=== PATIENT | female | born 1950 | race Caucasian/White ===

== ENCOUNTER 2024-02-08 09:05 | Observation (INO) ==
[2024-02-08] MEDS ORDERED: HYDROmorphone INJ 0.5 MG/0.5 ML SYR IV PRN ×2 (09:36→10:24)
--- NOTE | 2024-02-08 09:46 | Emergency Department Note ---
Impression & Plan Left shoulder pain, Closed left humeral fracture, Failure of outpatient treatment ED Provider Note NAME: ALISE DUNBAR AGE: 73 SEX: F : 1950 ARRIVES VIA: Walk-In INFORMANT: [Patient] ED PROVIDER(S): [Ted Myers MD] CHIEF COMPLAINT: Shoulder pain HISTORY OF PRESENT ILLNESS: The patient is a 73-year-old female presents with left shoulder pain. The patient states that 6 days ago, she fractured her left humeral neck. She was seen in the ER. She was seen by orthopedics as well as her family doctor's office. No operation is indicated. The fracture is going to heal with conservative measures. Patient is on medications for her Parkinson's and, there are potential interactions with her Rasagiline and narcotics, especially narcotics such as tramadol and Demerol. There is concern for the development of serotonin syndrome. The patient's pain is unbearable in the left shoulder. She was referred by her doctors office off to this ER for pain control. PMHx/PSHx/Social Hx: See Below PHYSICAL EXAM: GENERAL: Patient is in moderate distress from pain, tearful. HEENT: No acute trauma, normocephalic atraumatic, mucous membranes moist, no nasal congestion. NECK: No stridor, no adenopathy, no meningismus, trachea is midline. LUNGS: Clear to auscultation bilaterally, no wheeze, no rhonchi, breath sounds equal. HEART: Without murmurs gallops or rubs, regular rate and rhythm. ABDOMEN: Soft, nontender, no peritonitis. EXTREMITIES: No cyanosis. There is contusion noted to the left arm from the bicep to the forearm. There is a strong distal left radial pulse. The radial ulnar and median nerve are intact on the left. There is pain to move the left shoulder and palpate the left proximal humerus. NEUROLOGIC: Oriented x 3, no acute motor or sensory deficits, no focal weakness. SKIN: No jaundice, no diaphoresis. DIFFERENTIAL DIAGNOSIS: Uncontrolled pain, failed outpatient management, medication interaction, among others. EMERGENCY DEPARTMENT PROCEDURES: MEDICAL DECISION MAKING: There is no leukocytosis or worrisome anemia. There is a normal platelet count. No renal failure. Films of the left shoulder demonstrate the known proximal left humeral fracture. On exam, there was contusion of the left arm. There was no evidence for distal left upper extremity neurovascular compromise. She was quite uncomfortable with any movement or palpation of the proximal humerus. The patient presents with uncontrolled pain. She has failed outpatient pain management. There have been issues with prescribing pain medication for her as she is on a daily medication that may interact with narcotics. Given the circumstances, the patient is in need of a hospital stay for pain control. She can be monitored here to be sure that she tolerates the narcotic pain medication without any concerning interaction (serotonin syndrome). I did speak with the patient, I spoke with case management, the on-call hospitalist was consulted. During the patient's ED stay, she received IV Dilaudid. She tolerated this well without any notable interaction. Prior/Outside records/notes reviewed: Primary care note from 02/03/2024 describing her injury, the concern for narcotic administration, the plan moving forward. Imaging/x-ray results per my interpretation: Films of the left shoulder do not show any joint dislocation. The previously noted proximal humeral fracture was seen. Chronic Medical/Social conditions affecting care: Advanced age. Care/Management discussed with: Case management, the on-call hospitalist. Level of care consideration(s): After review of the information above and other included data: --I believe the patient requires escalation of care to admission DISPOSITION: Admission Past Med/Surg History Problem List (Updated 02/08/24 @ 17:32 by Ted Myers MD) Failure of outpatient treatment (Acute) Closed left humeral fracture (Acute) Left shoulder pain (Acute) Closed fracture of neck of humerus (Acute ~02/02/24) Mildly displaced fracture within the left humeral head/neck Fracture of neck of left humerus (02/02/24) From a fall while walking her dog Uncontrolled pain Mitral valve prolapse Fracture of anatomical neck of humerus (02/02/24) From a fall while walking her dog Osteoarthritis of right knee Balance disorder Parkinson disease Medical History Fall Fracture of neck of humerus (02/02/24) From a fall while walking her dog Osteoporosis Surgical History H/O wrist surgery H/O shoulder surgery Family History Mother Diabetes COPD (chronic obstructive pulmonary disease) Father Diabetes Aneurysm Grandmother (Maternal) Diabetes Denies family history of Ovarian cancer Prostate cancer Myocardial infarction Breast cancer Lung cancer Colorectal cancer Stroke Social History Smoking Status: Never smoker Second Hand Exposure: No; Do You Dip or Chew Tobacco: No; Hx Alcohol Use: Yes Alcohol type: beer, wine and hard liquor Alcohol Intake Frequency Comment: once a week with dinner Hx Substance Use: No Preferred Language: Kyrgyz Communication Ability: Effective Visual Impairment: Limited Hearing Ability: Normal Yolk Spray Drier Required: No Beliefs That Will Affect Care: None marital status: Current Living Situation: Spouse How many Children do You have: 2 Feels Safe at Home: Yes Safety Concerns: Feels Safe At This Time Childhood Exposure to Second-Hand Smoke: No Diet Comment: intermittent fasting Dental Care, Regularly: Yes Physical Activity Frequency: Daily Seatbelt Use: always Sunscreen Use: No Assistive Devices: Denture - Upper, Denture - Lower and Glasses Allergies Allergies Allergy/AdvReac Type Severity Reaction Status Date / Time No Known Allergies Allergy Verified 02/03/24 13:30 Home Meds Home Medications Medication Instructions Recorded Confirmed Pregnenolone 30 mg PO DAILY 08/04/22 02/08/24 ascorbic acid (vitamin C) 1,000 mg 1 g PO DAILY 08/04/22 02/08/24 capsule calcium citrate 315 mg 1 tab PO DAILY 08/04/22 02/08/24 calcium-vitamin D3 6.25 mcg (250 unit) tablet (Citracal + Vitamin D Maximum) coenzyme Q10 200 mg capsule 200 mg PO DAILY 08/04/22 02/08/24 vit C 250 mg-vit E 90 mg-zinc 40 1 tab PO DAILY 08/04/22 02/08/24 mg-copper 1 [id number] capsule (PreserVision AREDS-2) zinc gluconate 50 mg tablet 50 mg PO DAILY 08/04/22 02/08/24 Previous Rx's Medication Instructions Recorded cholecalciferol (vitamin D3) 50 50 mcg PO DAILY #90 caps 08/05/23 mcg (2,000 unit) capsule entacapone 200 mg tablet 200 mg PO QID 90 days #360 tabs 11/04/23 carbidopa 25 mg-levodopa 100 mg 2 tab PO QID 90 days #720 tabs 12/29/23 tablet carbidopa ER 50 mg-levodopa 200 mg 1 tab PO HS #90 tabs 12/29/23 tablet,extended release rasagiline 0.5 mg tablet 1 mg (2 x 0.5 mg) PO DAILY #60 tabs 12/29/23 Results & Data (ED) Vital Signs Vital Signs - 24 hr 02/08/24 09:07 02/08/24 10:12 Temperature 36.5 C Temperature Source Temporal Artery Scan Pulse Rate 63 54 L Respiratory Rate 18 Respiratory Effort / Characteristics Non-Labored Spontaneous Respiratory Depth Normal Blood Pressure 155/70 H Blood Pressure Mean 98 Blood Pressure Position Sitting Pulse Oximetry 100 Oxygen Delivery Method Room Air Sepsis Recent Fever Within 48 Hours No Sepsis New/Unexplained Change in Mental Status No Sepsis Action Taken by Nursing No Action Required Home Medications Current Medication List: was personally reviewed by me Laboratory Data Attestation: I reviewed the patient's lab results. 02/08/24 09:56 02/08/24 09:56 Lab Results 02/08/24 Range/Units 09:56 WBC 3.65 L (4.8-10.8) K/ul RBC 3.87 L (4.20-5.40) M/uL Hgb 11.8 L (12.0-16.0) g/dl Hct 34.9 L (37.0-47.0) % MCV 90.2 (80.0-100.0) fL MCH 30.5 (25.0-34.0) pg MCHC 33.8 (32.0-36.0) g/dL RDW Std Deviation 44.2 (36.4-46.3) fL RDW Coeff of Tony 13.3 (11.5-14.5) % Plt Count 208 (130-400) K/uL MPV 10.7 (9.4-12.4) fL Sodium 136 (136-145) mmol/L Potassium 4.2 (3.5-5.1) mmol/L Chloride 100 (98-107) mmol/L Carbon Dioxide 30 (21-32) mmol/L Anion Gap 6 (3-11) BUN 15 (6-23) mg/dl Creatinine 0.86 (0.6-1.2) mg/dl Est Cr Clr Drug Dosing 49.7 ml/min Est GFR ( Amer) 76.6 ml/min Est GFR (Non-Af Amer) 66.1 ml/min BUN/Creatinine Ratio 17.4 (10-20) Glucose 104 H (70-99(Fasting)) mg/dl Calcium 9.2 (8.6-10.3) mg/dl Administered Medications Carbidopa/Levodopa (Carbidopa/Levodopa 25/100mg Tab) 2 tab PO QID MERCEDES Stop: 03/09/24 12:59 Last Admin: 02/08/24 12:56 Dose: 2 tab Documented By: SARAH Entacapone (Entacapone 200 Mg Tab) 200 mg PO QID MERCEDES Stop: 03/09/24 12:59 Last Admin: 02/08/24 12:56 Dose: 200 mg Documented By: SARAH Rasagiline (Rasagiline Mesylate 0.5 Mg Tab) 0.5 mg PO DAILY MERCEDES Stop: 03/09/24 12:59 Last Admin: 02/08/24 12:56 Dose: 0.5 mg Documented By: SARAH Discontinued Medications Acetaminophen (Acetaminophen 325 Mg Tab) 650 mg PO NOW STA Stop: 02/08/24 10:49 Last Admin: 02/08/24 14:01 Dose: 650 mg Documented By: MARIA A Hydromorphone HCl (Hydromorphone Inj 0.5 Mg/0.5 Ml Syr) 0.5 mg IV NOW STA Stop: 02/08/24 09:37 Last Admin: 02/08/24 10:10 Dose: 0.5 mg Documented By: JOSSELINE Ibuprofen (Ibuprofen 200 Mg Tab) 200 mg PO NOW STA Stop: 02/08/24 10:49 Last Admin: 02/08/24 14:01 Dose: 200 mg Documented By: MARIA A Lidocaine (Lidocaine 5% 1 Patch) 1 patch TD NOW STA Stop: 02/08/24 10:50 Last Admin: 02/08/24 14:01 Dose: 1 patch Documented By: MARIA A Pantoprazole Sodium (Pantoprazole 40 Mg Tab) 40 mg PO NOW STA Stop: 02/08/24 10:50 Last Admin: 02/08/24 14:01 Dose: 40 mg Documented By: MARIA A Imaging Data Radiologist's Impression: Shoulder X-Ray 02/08/24 09:36 XR shoulder LT min 2V routine CLINICAL HISTORY: fracture TECHNIQUE: 3 views of the left shoulder were obtained. Comparison: Comparison is made to shoulder radiograph 02/02/2024 FINDINGS: Comminuted fracture of the left humeral head and neck is again seen. Displacement is stable to increased from prior exam, for example on the scapular view the humeral neck is displaced approximately 15 mm from the lateral fracture fragment. Joint spaces are well-preserved. Soft tissue swelling is seen about the shoulder. IMPRESSION: Redemonstration of humeral fracture with associated soft tissue swelling. The fracture fragments may be minimally more displaced than in the prior exam. ACT 112: Negative or not required by law. Electronically signed by: Keith Jurado M.D. 02/08/2024 10:42 AM Discharge Plan Visit Data Chief Complaint: Shoulder Pain Stated Complaint: L SHOULDER PAIN ED Provider: Ted Myers Discharge Problem: Left shoulder pain, Closed left humeral fracture, Failure of outpatient treatment Patient Disposition: Admitted As Inpatient Condition: Fair Discharge Instructions Interventions: ED Discharge Assessment Last Done: 02/08/24 12:28 Discharge Problem: Left shoulder pain Qualifiers: Chronicity: acute Qualified Code(s): M25.512 - Pain in left shoulder Closed left humeral fracture Qualifiers: Encounter type: subsequent encounter Humerus Location: proximal Fracture morphology: unspecified fracture morphology Fracture healing: with routine healing Qualified Code(s): S42.202D - Unspecified fracture of upper end of left humerus, subsequent encounter for fracture with routine healing
[2024-02-08] MEDS: HYDROmorphone INJ 0.5 MG/0.5 ML SYR IV STA (10:10)
[2024-02-08 10:19] LABS: Hematocrit (blood only) 34.9 % (37.0-47.0); Hemoglobin 11.8 g/dl (12.0-16.0); Mean Corpuscular Hemoglobin 30.5 pg (25.0-34.0); Mean Corpuscular Hgb Conc 33.8 g/dL (32.0-36.0); Mean Corpuscular Volume 90.2 fL (80.0-100.0); Mean Platelet Volume 10.7 fL (9.4-12.4); Platelet Count 208 K/uL (130-400); RDW Coefficient of Variation 13.3 % (11.5-14.5); RDW Standard Deviation 44.2 fL (36.4-46.3); Red Blood Count 3.87 M/uL (4.20-5.40); White Blood Count 3.65 K/ul (4.8-10.8)
--- NOTE | 2024-02-08 10:26 | History & Physical Report ---
Date of Service February 08, 2024 Assessment & Plan (1) Uncontrolled pain: Plan: Ad[facility] Currently stable with pain controlled after receiving 0.5 mg IV Dilaudid in the ED Patient initially presented to the ED today due to uncontrolled pain from her known left humeral head/neck fracture initially sustained after a fall on 02/02/2024. Complex situation as patient is on rasagiline for her Parkinson's disease, combination of narcotics with her MAOI (rasagiline) is now listed as a category X adverse reaction due to the risks of developing serotonin syndrome Because of these risks her outpatient prescription for oxycodone was never filled, pain was intolerable with using as needed Tylenol and Motrin At this time we will admit the patient for ongoing pain control and monitoring for the development of serotonin syndrome for now, patient understands that she would still be at risk of developing serotonin syndrome even if she does not develop it while admitted and taking narcotics with her rasagiline Long discussion was held with the patient including explanation of common symptoms associated with serotonin syndrome including fever, skin flushing, tachycardia, hypertension, and agitation. Patient expressed understanding that she should alert her nurse if she develops the symptoms while admitted and seek emergency medical attention if she develops the symptoms after discharge Patient is motivated to continue using conservative pain regimens with use of lowest dose possible of narcotics for severe pain Will begin the following pain regimen moving forward: > 650 mg p.o. acetaminophen every 6 hours scheduled > 200 mg P0 ibuprofen every 4 hours as needed pain 1-5 > 5 mg p.o. oxycodone IR every 4 hours as needed pain 6+ > Continue lidocaine patch > Continue left upper extremity and sling Will speak with orthopedics to see if they can see the patient during this admission as repeat 2 view x-ray of the left shoulder obtained in the ED shows possible progression of fracture fragments, patient is scheduled to see see orthopedics in follow-up the clinic tomorrow morning but unsure if she would be able to be discharged prior to this appointment If pain is uncontrolled and there is ongoing concern for increased doses of as needed narcotics could consider pain management consult to see if possible nerve block could be performed Heart healthy diet Bilateral MATEUSZ stockings for DVT prophylaxis PT/OT consults AM CBC, BMP (2) Fracture of neck of left humerus: Plan: See uncontrolled pain (3) Parkinson disease: Plan: Continue carbidopa levodopa We do not have patient's home rasagiline on formulary, discussed with patient and her will be bringing her home prescription shortly Miscellaneous med order has been placed as patient normally takes 0.5 mg rasagiline every morning Once patient brings her vaginally and and will give her her missed home dose this afternoon Fall precautions ordered Plan The patient was discussed with Dr. Reynaga at time of the admission History of Present Illness Chief Complaint: Uncontrolled pain Primary Care Provider: Dawn Copeland MD Sharee is a 73-year-old female with past medical history significant for Parkinson's disease and recently diagnosed left humeral head/neck fracture on 02/02/2024 who presented to the [facility] ED on 02/08/2024 at the recommendation of her PCP due to uncontrolled pain in her left upper extremity. Patient has a complex situation as she is on MAO inhibitors (rasagiline) for her Parkinson's disease. She was initially prescribed oxycodone for severe pain when she was seen in the emergency department on 01/25/2024 however, her pharmacy had refused to fill this prescription due to the theoretical risk of narcotics combined with MAO inhibitors being a category ask risk for serotonin syndrome. Patient has reportedly been using Tylenol and Motrin for pain which has been unsuccessful. We are asked to admit the patient for monitoring while starting a pain regimen due to the risk of narcotics and serotonin syndrome combined with rasagiline. Prior to admission the patient was given 3.5 mg IV Dilaudid. Patient was sitting in bed in no acute distress at the time of exam, she had received the 0.5 mg IV Dilaudid approximate 25 minutes before my arrival. States that her pain has been significantly improved after receiving 1 dose of the IV Dilaudid. Confirms she fell and broke her left humeral neck approximately 6 days ago while walking her son's dog. Confirms that she had been trying to use Tylenol and ibuprofen at home approximately every 6 hours (alternating approximately every 3 hours) without relief of her severe pain. She does confirm that she would miss doses of both and had been initially using a lidocaine patch but then stopped using this as well. Confirms that her prescription for oxycodone had not been for outpatient due to concerns for development of serotonin syndrome. Took all of her a.m. medications prior to arrival besides her 0.5 mg rasagiline, her preparing this and as we do not have this on formulary. I explained to her that there is a risk of developing serotonin syndrome when combining rasagiline and narcotics but this does not guarantee that she will develop this. Also explained that we can monitor for now while starting these medications but this does not mean that she may develop serotonin syndrome after discharge. Explained the symptoms associated with serotonin syndrome to monitor during admission on discharge including flushing, fever, tachycardia, hypertension, agitation. Explained to her that if she would develop these during her admission to let her nurse know. She also notes that she should seek emergency medical attention if she were develop these after discharge. When asked, patient denies current numbness/tingling coldness in the left upper extremity. She explains that at times while sleeping with the left elbow flexed and left shoulder internally rotated she will develop mild paresthesias which resolved when straightening her left upper extremity. She explains that she was supposed to be seen by orthopedics on 02/09/2024 for follow-up. Confirm she is a full code and would want her to make medical decisions for her if she cannot make them herself. Please refer to Dr. Reyngaa's attestation for any changes to treatment plan Allergies Allergy/AdvReac Type Severity Reaction Status Date / Time No Known Allergies Allergy Verified 02/03/24 13:30 Home Medications Medication Instructions Recorded Confirmed Type Pregnenolone 30 mg PO DAILY 08/04/22 02/08/24 History ascorbic acid (vitamin C) 1,000 mg 1 g PO DAILY 08/04/22 02/08/24 History capsule calcium citrate 315 mg 1 tab PO DAILY 08/04/22 02/08/24 History calcium-vitamin D3 6.25 mcg (250 unit) tablet (Citracal + Vitamin D Maximum) coenzyme Q10 200 mg capsule 200 mg PO DAILY 08/04/22 02/08/24 History vit C 250 mg-vit E 90 mg-zinc 40 1 tab PO DAILY 08/04/22 02/08/24 History mg-copper 1 [id number] capsule (PreserVision AREDS-2) zinc gluconate 50 mg tablet 50 mg PO DAILY 08/04/22 02/08/24 History cholecalciferol (vitamin D3) 50 50 mcg PO DAILY #90 caps 08/05/23 02/08/24 Rx mcg (2,000 unit) capsule entacapone 200 mg tablet 200 mg PO QID 90 days #360 tabs 11/04/23 02/08/24 Rx carbidopa 25 mg-levodopa 100 mg 2 tab PO QID 90 days #720 tabs 12/29/23 02/08/24 Rx tablet carbidopa ER 50 mg-levodopa 200 mg 1 tab PO HS #90 tabs 12/29/23 02/08/24 Rx tablet,extended release rasagiline 0.5 mg tablet 1 mg (2 x 0.5 mg) PO DAILY #60 tabs 12/29/23 02/08/24 Rx Past Med/Surg History Problem List (Updated 02/08/24 @ 11:16 by Tong Mahoney PA-C) Fracture of neck of left humerus Uncontrolled pain Mitral valve prolapse Fall (Acute) Fracture of neck of humerus (Acute) Fracture of anatomical neck of humerus Osteoarthritis of right knee Balance disorder Osteoporosis Parkinson disease Surgical History H/O wrist surgery H/O shoulder surgery Family History Mother Diabetes COPD (chronic obstructive pulmonary disease) Father Diabetes Aneurysm Grandmother (Maternal) Diabetes Denies family history of Ovarian cancer Prostate cancer Myocardial infarction Breast cancer Lung cancer Colorectal cancer Stroke Social History Smoking Status: Never smoker Second Hand Exposure: No; Do You Dip or Chew Tobacco: No; Hx Alcohol Use: Yes Alcohol type: wine Alcohol Intake Frequency Comment: once a week with dinner Hx Substance Use: No Preferred Language: Citizen Of [place] Visual Impairment: Limited Hearing Ability: Normal Beliefs That Will Affect Care: None marital status: Current Living Situation: Spouse How many Children do You have: 2 Feels Safe at Home: Yes Childhood Exposure to Second-Hand Smoke: No Diet Comment: intermittent fasting Dental Care, Regularly: Yes Physical Activity Frequency: Daily Seatbelt Use: always Sunscreen Use: No Physical Exam Physical Exam: Physical Exam: General: In no acute distress, stated age, well-nourished, good hygiene HEENT: Normocephalic, atraumatic, no scleral icterus, pupils around round, symmetrical, and reactive to light, moist mucus membranes, trachea midline, no thyromegaly Chest/Pulm: No respiratory distress, symmetrical chest expansion, clear breath sounds throughout Cardiac: RRR, no murmurs noted Abdomen: Negative for ascites and bruising, normoactive bowel sounds, soft, n on-tender to palpation throughout Musculoskeletal: Left upper extremity currently flexed at the left elbow with left shoulder internally rotated in a sling. Patient with intact strength in the left hand. No focal deformity noted on inspection. Extremities: Radial, dorsalis pedis, and posterior tibial pulses are intact and symmetrical, no edema noted in the BL LE's Skin: Bruising in various stages of healing on the inferior and lateral aspect of the left upper extremity, no signs of active bleeding at this time Neuro: Alert and oriented to person, place, month, year, and president, no focal defects, baseline tremor noted, patient with symmetrical and intact sensation and motor function in the bilateral upper extremities Psych: No acute distress, calm and cooperative during the exam Results & Data Results & Data Vital Signs (Past 12 Hours) Vital Signs Temp Pulse Resp BP Pulse Ox O2 Del Method 02/08/24 10:12 54 L 02/08/24 09:07 36.5 C 63 18 155/70 H 100 Room Air Laboratory Results Abnormal lab results 02/08/24 Range/Units 09:56 WBC 3.65 L (4.8-10.8) K/ul RBC 3.87 L (4.20-5.40) M/uL Hgb 11.8 L (12.0-16.0) g/dl Hct 34.9 L (37.0-47.0) % Glucose 104 H (70-99(Fasting)) mg/dl Diagnostic Findings Shoulder X-Ray 02/08/24 09:36 XR shoulder LT min 2V routine CLINICAL HISTORY: fracture TECHNIQUE: 3 views of the left shoulder were obtained. Comparison: Comparison is made to shoulder radiograph 02/02/2024 FINDINGS: Comminuted fracture of the left humeral head and neck is again seen. Displacement is stable to increased from prior exam, for example on the scapular view the humeral neck is displaced approximately 15 mm from the lateral fracture fragment. Joint spaces are well-preserved. Soft tissue swelling is seen about the shoulder. IMPRESSION: Redemonstration of humeral fracture with associated soft tissue swelling. The fracture fragments may be minimally more displaced than in the prior exam. ACT 112: Negative or not required by law. Electronically signed by: Keith Jurado M.D. 02/08/2024 10:42 AM Code Status & VTE Plan Code Status Full code VTE Prophylaxis Plan VTE Prophylaxis will be ordered: Yes Supervising Physician Co-Signing Physician Notes Patient seen and examined, chart reviewed, case discussed with Tong Mahoney PA-C and I agree with the assessment and plan as above except as otherwise noted Labs and images reviewed Angely is a 73-year-old female with a past medical history of parkinsonism and recent fall with left proximal humeral fracture. This was evaluated orthopedics 02/02/2024. Recommended for nonoperative management. Patient was placed in a sling at that time and was recommended for pain control and follow-up x-rays in 1 week. Unfortunately patient has continued to have severe uncontrolled pain. Due to her underlying parkinsonism for which she is prescribed entacapone/MAOI which is a category X interaction with all aquatics she was not prescribed as an outpatient and has had severe pain despite treatment with Tylenol and NSAIDs. She was subsequently referred to the ER for further care. Was recommended for inpatient evaluation and management with close monitoring due to incomplete pain control without narcotics, need for monitoring for serotonin syndrome if these are started, and Potential for referral to pain management? Nerve block if she continues to have intractable pain. At bedside visit following half a milligram of hydromorphone her pain is dramatically improved and while not resolved "way better, tolerable and functional now ". She denies any confusion, lightheadedness, dizziness, or feeling of feverishness. She does not feel any more shaky or tremulous than she normally would, no acute change. She has not yet taken her parkinsons medications today. Given very good pain relief achieving a functional quality of pain control will transition to oxycodone 5 mg every 4 hours as needed in addition to multimodal pain control including Tylenol, NSAIDs assuming renal function returns normal, lidocaine patch. Will watch for 24 hours, patient is aware that she is at risk of serotonin syndrome and that this is not excluded just because she does well for 24 hours. Recess benefits of ongoing narcotic treatment for functional pain control versus risk of serotonin syndrome were discussed with patient, and she is aware that serotonin syndrome is rare it is a severe eventually life-threatening condition. Will use minimum dose of breakthrough oxycodone to maintain pain tolerable levels, her goal is not to be pain-free and is aware this will take time and healing, goal is to have enough pain control to be functional as an outpatient. 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 Radial pulses intact, cap refill is intact in fingers, sensation is intact in the hand without deficit or asymmetry. She does endorse some numbness/tingling when she has her arm in a flexed position for an extended period of time, this always resolves with straightening her arm and is consistent with transient ulnar compression. No signs of neurovascular compromise at time of bedside assessment. She does have some gravity dependent contusions and bruising which per patient has slightly migrated to gravity, but which has not expanded or worsened in the last few days. No signs of compartment syndrome. Agree with above X-rays were due for repeat 02/08, -> Repeats pending. Will discuss with orthopedics prior to ordering to see if additional views/apical oblique are desired in addition AP/Lat/axillary. PG Care Time/CCT Total # of Minutes Spent Total Time Spent with Patient: Total time spent is greater than 50% in coordination of care (as documented) at patient's floor/unit and/or counseling patient: Coding [place] [address] INT INP/OBS CARE 3/75MIN Patient Type Established History Comprehensive Exam Comprehensive Medical Decision Making High Complexity Diagnoses Uncontrolled pain R52 Fracture of neck of left humerus S42.212A Parkinson disease G20
[2024-02-08 10:35] LABS: BUN Creatinine Ratio 17.4 (10-20); Calcium 9.2 mg/dl (8.6-10.3); Creatinine Clr Calc Pharmacy 49.7 ml/min; Est GFR (African American) 76.6 ml/min; Est GFR (Non-African American) 66.1 ml/min; Potassium 4.2 mmol/L (3.5-5.1)
--- NOTE | 2024-02-08 10:44 | XRay Report ---
XR shoulder LT min 2V routine CLINICAL HISTORY: fracture TECHNIQUE: 3 views of the left shoulder were obtained. Comparison: Comparison is made to shoulder radiograph 02/02/2024 FINDINGS: Comminuted fracture of the left humeral head and neck is again seen. Displacement is stable to increa sed from prior exam, for example on the scapular view the humeral neck is displaced approximately 15 mm from the lateral fracture fragment. Joint spaces are well-preserved. Soft tissue swelling is seen about the shoulder. IMPRESSION: Redemonstration of humeral fracture with associated soft tissue swelling. The fracture fragments may be minimally more displaced than in the prior exam. ACT 112: Negative or not required by law. Electronically signed by: Keith Jurado M.D. 02/08/2024 10:42 AM
[2024-02-08] MEDS: RASAGILINE MESYLATE 0.5 MG PO SCH (12:56)
[2024-02-08] MEDS: CARBIDOPA/LEVODOPA 25/100MG TAB PO SCH (12:56)
[2024-02-08] MEDS: ENTACAPONE 200 MG TAB PO SCH (12:56)
[2024-02-08] MEDS: PANTOprazole 40 MG TAB PO STA (14:01)
[2024-02-08] MEDS: IBUPROFEN 200 MG TAB PO STA (14:01)
[2024-02-08] MEDS: LIDOCAINE 5% 1 PATCH TD STA (14:01)
[2024-02-08] MEDS: ACETAMINOPHEN 325 MG TAB PO STA (14:01)
[2024-02-08] MEDS ORDERED: IBUPROFEN 200 MG TAB PO PRN (15:00)
--- NOTE | 2024-02-08 17:19 | Orthopedic Consultation ---
Date of Service February 08, 2024 Assessment & Plan (1) Closed fracture of neck of humerus: I went over the diagnosis and treatment options with her again. Fortunately this can be treated nonoperatively. She is having soreness in the shoulder which is to be expected. The shoulder would usually be pretty painful for 4 to 6 weeks. She understands that. She seems to be tolerating the oxycodone okay. As long as she has adequate pain control she can be discharged tomorrow. She can follow-up with Dr. Doss in 2 weeks. History of Present Illness Reason for Consultation: Left proximal humerus fracture. Requesting Physician: . Attending Physician: Thor Reynaga MD Angely is a pleasant 73-year-old female who fell a week ago sustaining a left proximal humerus fracture. It was relatively nondisplaced four-part fracture of the proximal humerus. She was initially seen by Dr. Doss. They elected to proceed with nonoperative treatment. She was placed in a sling. Unfortunately she is having a lot of pain in her left shoulder. She has difficulty taking certain narcotics. She came to the emergency room with uncontrolled pain. She was admitted to the hospitalist service to work on pain control port. Orthopedics was consulted to evaluate.. Allergies Allergy/AdvReac Type Severity Reaction Status Date / Time No Known Allergies Allergy Verified 02/03/24 13:30 Home Medications Medication Instructions Recorded Confirmed Type Pregnenolone 30 mg PO DAILY 08/04/22 02/08/24 History ascorbic acid (vitamin C) 1,000 mg 1 g PO DAILY 08/04/22 02/08/24 History capsule calcium citrate 315 mg 1 tab PO DAILY 08/04/22 02/08/24 History calcium-vitamin D3 6.25 mcg (250 unit) tablet (Citracal + Vitamin D Maximum) coenzyme Q10 200 mg capsule 200 mg PO DAILY 08/04/22 02/08/24 History vit C 250 mg-vit E 90 mg-zinc 40 1 tab PO DAILY 08/04/22 02/08/24 History mg-copper 1 [id number] capsule (PreserVision AREDS-2) zinc gluconate 50 mg tablet 50 mg PO DAILY 08/04/22 02/08/24 History cholecalciferol (vitamin D3) 50 50 mcg PO DAILY #90 caps 08/05/23 02/08/24 Rx mcg (2,000 unit) capsule entacapone 200 mg tablet 200 mg PO QID 90 days #360 tabs 11/04/23 02/08/24 Rx carbidopa 25 mg-levodopa 100 mg 2 tab PO QID 90 days #720 tabs 12/29/23 02/08/24 Rx tablet carbidopa ER 50 mg-levodopa 200 mg 1 tab PO HS #90 tabs 12/29/23 02/08/24 Rx tablet,extended release rasagiline 0.5 mg tablet 1 mg (2 x 0.5 mg) PO DAILY #60 tabs 12/29/23 02/08/24 Rx Past Med/Surg History Problem List Closed fracture of neck of humerus (Acute ~02/02/24) Mildly displaced fracture within the left humeral head/neck Fracture of neck of left humerus (02/02/24) From a fall while walking her dog Uncontrolled pain Mitral valve prolapse Fall (Acute) Fracture of neck of humerus (Acute 02/02/24) From a fall while walking her dog Fracture of anatomical neck of humerus (02/02/24) From a fall while walking her dog Osteoarthritis of right knee Balance disorder Osteoporosis Parkinson disease Surgical History H/O wrist surgery H/O shoulder surgery Family History Mother Diabetes COPD (chronic obstructive pulmonary disease) Father Diabetes Aneurysm Grandmother (Maternal) Diabetes Denies family history of Ovarian cancer Prostate cancer Myocardial infarction Breast cancer Lung cancer Colorectal cancer Stroke Social History Smoking Status: Never smoker Second Hand Exposure: No; Do You Dip or Chew Tobacco: No; Hx Alcohol Use: Yes Alcohol type: beer, wine and hard liquor Alcohol Intake Frequency Comment: once a week with dinner Hx Substance Use: No Preferred Language: Yi Communication Ability: Effective Visual Impairment: Limited Hearing Ability: Normal [employer] Accountant Required: No Beliefs That Will Affect Care: None marital status: Current Living Situation: Spouse How many Children do You have: 2 Feels Safe at Home: Yes Safety Concerns: Feels Safe At This Time Childhood Exposure to Second-Hand Smoke: No Diet Comment: intermittent fasting Dental Care, Regularly: Yes Physical Activity Frequency: Daily Seatbelt Use: always Sunscreen Use: No Assistive Devices: Denture - Upper, Denture - Lower and Glasses Review of Systems All systems reviewed & are unremarkable except as noted in HPI & below. Physical Exam On physical examination left shoulder, she is wearing her sling as instructed. She has ecchymosis that is pulling down to her elbow and along her left forearm. She has little bit of numbness in the ulnar nerve distribution of her left hand as well.. Constitutional WD/WN, vitals as above Eyes PERRL, conjunctivae normal, anicteric sclerae ENMT external ear and nose normal, oropharynx normal Neck trachea midline, no thyromegaly Respiratory normal respiratory effort Cardiovascular RRR, no murmur, no edema Gastrointestinal (Abdomen) normal bowel sounds, soft, nontender, no hepatosplenomegaly Psychiatric A+Ox3, euthymic affect Results & Data Results & Data Laboratory Results . Diagnostic Findings X-rays of the left shoulder do show a relatively nondisplaced four-part left proximal humerus fracture.. PG Care Time/CCT Total # of Minutes Spent Total Time Spent with Patient: Total time spent is greater than 50% in coordination of care (as documented) at patient's floor/unit and/or counseling patient: Coding Level of Care Code 04666 IN/OBS CONSULT LVL 4,60M Diagnoses Closed fracture of neck of humerus S42.213A
[2024-02-08] MEDS: ACETAMINOPHEN 325 MG TAB PO SCH (17:22)
[2024-02-08] MEDS: oxyCODONE HCL IR 5 MG TAB (IMMEDIATE RELEASE) PO PRN (18:40)
[2024-02-08] MEDS: CARBIDOPA/LEVODOPA 50/200MG EXT REL TAB PO SCH (21:08)
[2024-02-08] MEDS ORDERED: LORazepam 0.5 MG TAB PO STA (22:54)
[2024-02-08 23:26] VITALS: BP 159/73; PULSE 59; RESP 16; TEMP 98.4; O2SAT 96
== END 2024-02-09 00:40 | disposition left against medical advice (07) ==
LOC: 2N 09:05 → ED 09:05 → 2N 12:28